=== PATIENT | male | born 1975 | race Caucasian/White ===

== ENCOUNTER 2021-10-04 15:01 | Day surgery (SDC) | payer OTHER, SELFPAY ==
[2021-10-04] VITALS (13 sets, daily range): BP systolic 126–168; BP diastolic 82–108; PULSE 71–87; RESP 14–24; TEMP 36.5–36.9; O2SAT 97–99; BMI 31.7
[2021-10-04] MEDS: NITROGLYCERIN 0.4 MG TAB.SUBL SUBLINGUAL (16:15)
[2021-10-04 16:17] LABS: Basophils Percent Auto 0.5 % (0.0-3.0); Eosinophils Percent Auto 3.4 % (0.0-7.0); Hematocrit 41.4 % (37.0-53.0); Hemoglobin* 14.6 gm/dL (13.5-17.5); Lymphocytes Percent Auto 20.2 % (20-44); Mean Corpuscular HGB Conc 35 gm/dL (32-36); Mean Corpuscular Hemoglobin 31 pg (26-34); Mean Corpuscular Volume 88 fL (80-100); Monocytes Percent Auto 7.8 % (0.0-11.0); Neutrophils Percent Auto 68.1 % (42.0-72.0); Platelet Count* 146 K/uL (140-440); RDW Coefficient of Variation % 11.5 % (11.5-15.5); Red Blood Count 4.71 m/uL (4.30-5.90); White Blood Count* 4.36 K/uL (4.50-11.00)
[2021-10-04 16:22] LABS: Slide Review Reflex No
[2021-10-04 16:32] LABS: INR 1.12 (0.91-1.10); Prothrombin Time 14.8 Seconds
--- NOTE | 2021-10-04 16:32 | ED.NURSE ---
did get a headache from the nitro. stated that the pain went lower in his chest after that was given.
[2021-10-04 16:38] LABS: Albumin* 4.4 g/dL (3.3-5.0)
[2021-10-04 16:39] LABS: Chloride* 105 mmol/L (96-114); Potassium* 3.7 mmol/L (3.6-5.1); Sodium* 138 mmol/L (135-149)
[2021-10-04 16:41] LABS: Aspartate Amino Transferase* 328 U/L (12-35); Bilirubin Total* 3.9 mg/dL (0.1-1.5); Carbon Dioxide* 25 mmol/L (20-32); Creatinine* 0.8 mg/dL (0.5-1.5); Est. Creatinine Clearance* 116.61; Estimated Glomerular Filt Rate 111 ml/min
[2021-10-04 16:42] LABS: Alanine Aminotransferase* 347 U/L (4-50); Alkaline Phosphatase* 137 U/L (40-150); Blood Urea Nitrogen* 7 mg/dL (5-24); Gamma Glutamyl Transpeptidase* 407 U/L (8-55); Glucose* 113 mg/dL (60-115); Lipase* 104 U/L (23-300); Total Protein* 7.3 g/dL (6.0-8.3)
[2021-10-04 16:53] LABS: Troponin I* < 0.01 ng/mL (0.01-0.04)
[2021-10-04] MEDS: GI COCKTAIL (VISC LIDO/ANTACID) 30 ML PO (16:57)
--- NOTE | 2021-10-04 17:11 | CRLHL7_ITS ---
For Patients: As a result of the Century Cures Act, medical imaging exams and procedure reports are released immediately into your electronic medical record. You may view this report before your referring provider. If you have questions, please contact your health care provider. This noncontrast CT chest is interpreted as part of the accompanying CT angiogram of the chest, abdomen, pelvis. Please note that all CT scans at this facility use dose modulation, iterative reconstruction, and/or weight-based dosing when appropriate to reduce radiation dose to as low as reasonably achievable. Dictated by Cesar Noble MD @ 10/04/2021 6:17:02 PM (Electronically Signed)
--- NOTE | 2021-10-04 17:19 | ED_ITS ---
HPI - General Adult General Chief complaint: Abdominal Pain Stated complaint: ABDOMINAL PAIN IN UPPER CENTER REGION Time Seen by Provider: 10/04/21 15:35 History of Present Illness HPI narrative: 45yo male patient with known history of liver disease secondary to history of ETOH use (sober greater than 3 years) presents to the ED with acute complaints of chest/abdominal pain. The patient reports that the pain began while eating today, and reports similar pain with meal yesterday. The patient denies nausea, vomiting, or diarrhea. Although, while in the ED the pain becomes so severe that he reports nausea associated with his pain. The patient reports a history of gallbladder disease, with stones noted. Patient reports family history of cardiac disease in his father at less than 50 years of age. He denies current EtOH, tobacco, or illicit substance use. Related Data Home Medications Medication Instructions Recorded Confirmed bupropion HCl 150 mg tablet,12 hr 150 mg PO Q12H 10/04/21 10/04/21 sustained-release gabapentin 300 mg capsule 300 mg PO BID 10/04/21 10/04/21 hydroxyzine HCl 25 mg tablet 25 mg PO TID PRN 10/04/21 10/04/21 Allergies Allergy/AdvReac Type Severity Reaction Status Date / Time Sulfa (Sulfonamide Allergy Severe Hives Verified 10/04/21 15:12 Antibiotics) hydrochlorothiazide AdvReac Unknown Verified 10/04/21 15:12 Review of Systems Const: Denies: fever, chills, fatigue or night sweats Cardio: Reports: chest pain and shortness of breath when lying down; Denies: palpitations, swelling of feet/ankles or shortness of breath with exertion Resp: Denies: shortness of breath GI: Reports: abdominal pain, nausea and constipation (last BM 2 days prior); Denies: vomiting, heartburn or diarrhea Neuro: Denies: headache, lack of coordination or dizziness Psych: Reports: anxiety Endo: Denies: fatigue PFSH PFSH Social History Smoking Status: Never smoker Do you use any of these nicotine containing products: None Second hand tobacco smoke exposure: No How often do you have a drink containing alcohol: never How often do you have six or more drinks on one occasion: Never AUDIT-C Alcohol total score: 0 Non-prescribed substance use: denies use service: No Exam Const: Vital Signs, click to edit/add: Vital Signs - 24 hr 10/04/21 15:07 10/04/21 16:15 10/04/21 16:16 Temperature 98.4 F Pulse Rate [Pulse Oximeter] 75 71 71 Respiratory Rate 18 24 24 Blood Pressure [Ri ght Upper Arm] 168/108 H 148/98 H Pulse Oximetry 99 98 98 10/04/21 16:20 10/04/21 16:30 10/04/21 16:40 Temperature Pulse Rate [Pulse Oximeter] 82 77 74 Respiratory Rate 21 22 Blood Pressure [Ri ght Upper Arm] 150/98 H 141/94 H 139/96 H Pulse Oximetry 97 97 98 10/04/21 16:50 10/04/21 18:00 10/04/21 18:30 Temperature Pulse Rate [Pulse Oximeter] 76 87 72 Respiratory Rate 14 24 Blood Pressure [Ri ght Upper Arm] 146/97 H 145/96 H 147/98 H Pulse Oximetry 97 97 99 10/04/21 19:00 Temperature Pulse Rate [Pulse Oximeter] 75 Respiratory Rate Blood Pressure [Ri ght Upper Arm] 126/82 Pulse Oximetry 99 Documenting provider has reviewed patient's vital signs: yes Common normals: oriented x3, healthy appearing and alert General appearance: cooperative, well kempt and well developed; not comfortable Orientation/consciousness: Yes awake, Yes oriented to person, Yes oriented to place and Yes oriented to time Chest: Common normals: inspection of chest normal and palpation of chest normal Resp: Common normals: normal respiratory effort, no retractions, no use of accessory muscles and clear to auscultation bilaterally Effort & inspection: able to speak in complete sentences Auscultation: clear to auscultation bilaterally Cardio: Common normals: regular rate, regular rhythm, S1 normal heart sound, S2 normal heart sound, no gallops and no murmurs Rate: regular rate Rhythm: regular rhythm Heart sounds: S1 normal and S2 normal GI: Common normals: Normal to inspection, nondistended, normoactive bowel sounds present, soft to palpation and non-tender Palpation: soft; no guarding Extremity: Common normals: normal to inspection, full ROM and no clubbing, cyanosis or edema Neuro: Common normals: oriented x3 Sensorium/orientation: awake, alert, oriented to person, oriented to place and oriented to time Psych: Common normals: mental status grossly normal, thought process normal, cooperative, affect normal and activity/motor behavior normal Appearance: well kempt Thought process: normal thought process Skin: Common normals: no rashes or lesions noted General skin exam: no rashes or lesions noted Course Course Hospital Course: Frank presented to the emergency department with complaints of chest/abdominal pain that began after eating. The patient reports similar symptoms 1 day prior to presentation. In the emergency department, patient reports that he has had waxing waning of discomfort. He has had CT evaluation of chest abdomen pelvis to rule out aortic emergency. He has had normal EKG. His laboratory studies have revealed transaminitis and his ultrasound revealed gallstones with potential wall thickening. Dr. Francis, general surgery, was consulted for consideration of cholecystectomy. She recommends antibiotics, re-evaluation with additional laboratory studies in the a.m., and potential surgical intervention pending further evaluation. She has requested the hospitalist consult for medical management. Plan for patient to be admitted for further evaluation and treatment of his acute concern and complaints. Reevaluation(s) Reevaluation #1: Patient reports pain now severe and causing nausea. Patient reports some improvement with position change. He reports associated shortness of breath and 'movement' of pain into low chest/epigastrum. Time: 17:05 Reevaluation #2: Dr Francis consulted for acute findings consistent with potential gallstone biliary obstruction in patient with complicated history of liver disease. Consider antibiotics, admission, and recheck of labs in AM with potential consideration of surgery, if indicated. Dr Pena consulted, but currently occupied. Time: 19:44 Vital Signs Vital signs: Initial Vital Signs Temperature 98.4 F 10/04/21 15:07 Temperature Source Temporal Artery Scan 10/04/21 15:07 Pulse Rate 75 10/04/21 15:07 Respiratory Rate 18 10/04/21 15:07 Blood Pressure 168/108 H 10/04/21 15:07 Blood Pressure Mean 128 10/04/21 15:07 Blood Pressure Position Supine 10/04/21 15:07 Pulse Oximetry 99 10/04/21 15:07 Oxygen Delivery Method 10/04/21 15:07 Vital Signs Temperature 98.4 F 10/04/21 15:07 Pulse Rate 75 10/04/21 15:07 Respiratory Rate 18 10/04/21 15:07 Blood Pressure 168/108 H 10/04/21 15:07 Pulse Oximetry 99 10/04/21 15:07 Temperature 98.4 F 10/04/21 15:07 Pulse Rate 75 10/04/21 19:00 Respiratory Rate 24 10/04/21 18:30 Blood Pressure 126/82 10/04/21 19:00 Pulse Oximetry 99 10/04/21 19:00 Medical Decision Making Lab Data Labs: Lab Results 10/04/21 10/04/21 10/04/21 Range/Units 16:10 16:10 16:10 WBC 4.36 L (4.50-11.00) K/uL RBC 4.71 (4.30-5.90) m/uL Hgb 14.6 (13.5-17.5) gm/dL Hct 41.4 (37.0-53.0) % MCV 88 (80-100) fL MCH 31 (26-34) pg MCHC 35 (32-36) gm/dL RDW Coeff of Byron 11.5 (11.5-15.5) % Plt Count 146 (140-440) K/uL Neut % (Auto) 68.1 (42.0-72.0) % Lymph % (Auto) 20.2 (20-44) % [place] % (Auto) 7.8 (0.0-11.0) % Eos % (Auto) 3.4 (0.0-7.0) % Baso % (Auto) 0.5 (0.0-3.0) % Neut # (Auto) 3.00 (1.7-7.0) K/uL Lymph # (Auto) 0.90 (0.90-2.90) K/uL [place] # (Auto) 0.30 (0.00-0.90) K/UL Eos # (Auto) 0.10 (0.00-0.50) K/uL Baso # (Auto) 0.00 (0.00-0.30) K/uL Abs Immat Gran (auto) 0.00 (0.00-0.30) K/uL INR 1.12 H (0.91-1.10) Sodium 138 (135-149) mmol/L Potassium 3.7 (3.6-5.1) mmol/L Chloride 105 (96-114) mmol/L Carbon Dioxide 25 (20-32) mmol/L BUN 7 (5-24) mg/dL Creatinine 0.8 (0.5-1.5) mg/dL Estimated Creat Clear 116.61 Estimated GFR 111 ml/min Glucose 113 (60-115) mg/dL Calcium 9.0 (8.4-10.6) mg/dL Total Bilirubin 3.9 H (0.1-1.5) mg/dL GGT (8-55) U/L AST 328 H (12-35) U/L ALT 347 H (4-50) U/L Alkaline Phosphatase 137 (40-150) U/L Troponin I < 0.01 L (0.01-0.04) ng/mL Total Protein 7.3 (6.0-8.3) g/dL Albumin 4.4 (3.3-5.0) g/dL Lipase 104 (23-300) U/L 10/04/21 Range/Units 16:10 WBC (4.50-11.00) K/uL RBC (4.30-5.90) m/uL Hgb (13.5-17.5) gm/dL Hct (37.0-53.0) % MCV (80-100) fL MCH (26-34) pg MCHC (32-36) gm/dL RDW Coeff of Byron (11.5-15.5) % Plt Count (140-440) K/uL Neut % (Auto) (42.0-72.0) % Lymph % (Auto) (20-44) % [place] % (Auto) (0.0-11.0) % Eos % (Auto) (0.0-7.0) % Baso % (Auto) (0.0-3.0) % Neut # (Auto) (1.7-7.0) K/uL Lymph # (Auto) (0.90-2.90) K/uL [place] # (Auto) (0.00-0.90) K/UL Eos # (Auto) (0.00-0.50) K/uL Baso # (Auto) (0.00-0.30) K/uL Abs Immat Gran (auto) (0.00-0.30) K/uL INR (0.91-1.10) Sodium (135-149) mmol/L Potassium (3.6-5.1) mmol/L Chloride (96-114) mmol/L Carbon Dioxide (20-32) mmol/L BUN (5-24) mg/dL Creatinine (0.5-1.5) mg/dL Estimated Creat Clear Estimated GFR ml/min Glucose (60-115) mg/dL Calcium (8.4-10.6) mg/dL Total Bilirubin (0.1-1.5) mg/dL GGT 407 H (8-55) U/L AST (12-35) U/L ALT (4-50) U/L Alkaline Phosphatase (40-150) U/L Troponin I (0.01-0.04) ng/mL Total Protein (6.0-8.3) g/dL Albumin (3.3-5.0) g/dL Lipase (23-300) U/L Imaging Data GB US: Attestation: I have reviewed the pertinent imaging results. Radiologist's impression: FINDINGS: Gallbladder: Solitary 3.3 centimeter gallstone. Gallbladder wall thickening up to 5 millimeters. No pericholecystic fluid.? Common bile duct: 7 mm.? IMPRESSION: Solitary 3.3 centimeter gallstone gallbladder wall thickening up to 5 millimeters. Common bile duct is the upper limits of normal at 7 millimeters. Discharge Plan Discharge Clinical Impression: Transaminitis, Acute cholecystitis due to biliary calculus Patient Disposition: Admitted As Inpatient Condition: Improved Activity Level: Activity as Tolerated Discharge Diet: Other Diet Detail: NPO after midnight. Prescriptions: No Action gabapentin 300 mg capsule 300 mg PO BID 0RF Label Comments: Take 2 capsules by mouth at dinner and 3 at bedtime bupropion HCl 150 mg tablet sustained-release 12 hr 150 mg PO Q12H 0RF Label Comments: Take 1 tablet by mouth daily for 3 days, then twice daily thereafter hydroxyzine HCl 25 mg tablet 25 mg PO TID [id number] Label Comments: Take 1 tablet (25 mg) by mouth 3 times daily as needed for anxiety Follow Up/Referrals: Provider,Not a Local [Primary Care Provider] -
--- NOTE | 2021-10-04 17:20 | ED.NURSE ---
went to imaging. does feel better now and will hold off the droperidol for now. pain is much less. was up to br to void. thinks the gi cocktail may have helped now. was quite anxious with the pain. dr harvey was in to see when the pain was more severe.
--- NOTE | 2021-10-04 17:36 | ED.NURSE ---
dr harvey aware that the pain subsided significantly and droperidol was not given.
--- NOTE | 2021-10-04 17:42 | CRLHL7_ITS ---
For Patients: As a result of the Century Cures Act, medical imaging exams and procedure reports are released immediately into your electronic medical record. You may view this report before your referring provider. If you have questions, please contact your health care provider. INDICATION: Transaminitis with abdominal pain TECHNIQUE: Ultrasound abdomen limited. Sonographic images of the right upper quadrant were obtained using yost-scale and color Doppler images. COMPARISON: None FINDINGS: Gallbladder: Solitary 3.3 centimeter gallstone. Gallbladder wall thickening up to 5 millimeters. No pericholecystic fluid. Common bile duct: 7 mm. IMPRESSION: Solitary 3.3 centimeter gallstone gallbladder wall thickening up to 5 millimeters. Common bile duct is the upper limits of normal at 7 millimeters. Dictated by Alexander Holden MD @ 10/04/2021 6:51:03 PM Dictated by: Alexander Holden MD @ 10/04/2021 18:51:10 (Electronically Signed)
[2021-10-04] MEDS: PIPERACILLIN/TAZOBACTAM 3.375 GM in 0.9 % SODIUM CHLORIDE Mini-bag 100 ML IVPB (20:01)
[2021-10-04 20:34] LABS: SARS PCR* Negative SARS-CoV-2 (Negative)
--- NOTE | 2021-10-04 21:43 | W.PC.EDHO ---
Primary Language: Preferred Language: Orientation Status: [x] Alert & Oriented [] Slight Confusion [] Known Dx Dementia Transfers By: [x] Assist of 1 [] Assist of 2 [] Lift Active Medications Discontinued Medications Generic Name Dose Route Start Last Admin Trade Name Trinidad PRN Reason Stop Dose Admin Piperacillin Sod/Tazobactam 100 mls @ 200 mls/hr 10/04/21 19:35 10/04/21 20:01 Sod 3.375 gm/ Sodium Chloride IVPB 10/04/21 19:36 200 mls/hr ONCE ONE Administration Lidocaine/Aluminum/Magnesium/Simeth 30 ml 10/04/21 16:49 10/04/21 16:57 Gi Cocktail (Visc Lido/Antacid) 30 Ml PO 10/04/21 16:50 30 ml ONCE ONE Administration Nitroglycerin 0.4 mg 10/04/21 15:53 10/04/21 16:15 Nitroglycerin 0.4 Mg Tab.Subl SUBLINGUAL 10/04/21 15:54 0.4 mg ONCE ONE Administration Description of Symptoms ED Triage Present Problem Patient with epigastric pain after lunch yesterday Description . Went away while he was sleeping. Came back after lunch again today. Slight nausea. Patient reports history of gallstones on ultrasounds x2. ED Triage Date of Onset of 10/03/21 Symptoms Pain Pain Description [Upper Medial Sharp Abdomen] Pain Description [Upper Medial Sharp Abdomen] Pain Intensity [Upper Medial 7 Abdomen] Pain Intensity [Upper Medial 7 Abdomen] Pain Intensity 1 Pain Intensity 1 Pain Intensity 1 Pain Intensity 2 Pain Scale Used [Upper Medial Numeric (1 - 10) Abdomen] Pain Scale Used [Upper Medial Numeric (1 - 10) Abdomen] Pain Scale Used Numeric (1 - 10) Pain Scale Used Numeric (1 - 10) Pain Scale Used Numeric (1 - 10) Pain Scale Used Numeric (1 - 10) IV Insertion/Site Date of IV Line Insertion [ 10/04/21 Left Antecubital] Oxygen Administration Pulse Oximetry 99 Pulse Oximetry 99 Pulse Oximetry 97 Pulse Oximetry 97 Pulse Oximetry 98 Pulse Oximetry 97 Pulse Oximetry 97 Pulse Oximetry 97 Pulse Oximetry 97 Pulse Oximetry 98 Pulse Oximetry 98 Pulse Oximetry 99 Oxygen Delivery Method Room Air Oxygen Delivery Method Room Air Oxygen Delivery Method Room Air Oxygen Delivery Method Room Air Oxygen Delivery Method Room Air Oxygen Delivery Method Room Air Oxygen Delivery Method Room Air Oxygen Delivery Method Room Air Oxygen Delivery Method Room Air Oxygen Delivery Method Room Air Oxygen Delivery Method Room Air Oxygen Delivery Method Room Air Cardiac Monitoring EKG Method 12 Lead
--- NOTE | 2021-10-04 21:50 | P.IMHP_ITS ---
Hospitalist- H&P: HPI History of Present Illness Date Seen: 10/04/21 Chief complaint: ABDOMINAL PAIN IN UPPER CENTER REGION Narrative: Frank Higgins is a 45 year old male admitted through the emergency department with a 1 day history of severe epigastric pain. He had onset of the pain yesterday. He was very severe. He was unable to continue his work because of the pain. He is unable to eat because of the pain. Last night he was able to sleep a little and this morning his pain was better. Today he ate lunch and this afternoon the pain got much worse. As result of this he came to the emergency room. he wear of having a fever. Does not have shortness of breath. He has had nausea without vomiting. Bowel function has been normal. No previous symptoms like this. He does note however that in on is of mild heartburn. He is known to have gallstones dating back years. Patient has a history of severe alcoholic induced liver disease recurrent hospitalizations up until May of 2018 with ascites, jaundice, hepatitis, macrocytic anemia, hyponatremia. he also had hypertension and diabetes type 2. Since May of 2018 he has stopped drinking alcohol and the problems have resolved. 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 Review of Systems Narrative: Patient reports he has been doing well therefore problems as listed above. He has been vaccinated for COVID. He has had COVID infection twice. [facility] Medical History (Updated 10/04/21 @ 21:49 by Charles Pena MD) Cirrhosis, alcoholic Diabetes type 2, controlled Hypertension Social History (Updated 10/04/21 @ 22:00 by Charles Pena MD) Narrative: he lives alone in [place]. 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 He does not smoke. He does not drink alcohol since May 2018. Does not use recreational drugs. Healthcare power of deputy commonwealth's attorney is his mother. code status is full Smoking Status: Never smoker Do you use any of these nicotine containing products: None Second hand tobacco smoke exposure: No How often do you have a drink containing alcohol: never How often do you have six or more drinks on one occasion: Never AUDIT-C Alcohol total score: 0 Non-prescribed substance use: denies use service: No Meds Home Medications and Allergies Home Medications Medication Instructions Recorded Confirmed Type bupropion HCl 150 mg tablet,12 hr 150 mg PO Q12H 10/04/21 10/04/21 History sustained-release gabapentin 300 mg capsule 300 mg PO BID 10/04/21 10/04/21 History hydroxyzine HCl 25 mg tablet 25 mg PO TID PRN 10/04/21 10/04/21 History Allergies Allergy/AdvReac Type Severity Reaction Status Date / Time Sulfa (Sulfonamide Allergy Severe Hives Verified 10/04/21 15:12 Antibiotics) hydrochlorothiazide AdvReac Unknown Verified 10/04/21 15:12 Exam Narrative: Exam Narrative: he is alert and appears in no distress. He is not having any pain at this time. Eyes are normal. Sclerae nonicteric. Oropharynx is normal. Supple without mass or adenopathy. Respirations are clear to auscultation. Cardio vascular: S1, S2, regular rate and rhythm palpation over his chest is nontender. Abdomen: Bowel sounds are active. Abdomen is soft without significant tenderness. No mass. Extremities with no edema. Good peripheral pulses. Const: Vital Signs, click to edit/add: Vital Signs - 24 hr 10/04/21 15:07 10/04/21 16:15 10/04/21 16:16 Temperature 98.4 F Pulse Rate [Pulse Oximeter] 75 71 71 Respiratory Rate 18 24 24 Blood Pressure [Ri ght Upper Arm] 168/108 H 148/98 H Pulse Oximetry 99 98 98 10/04/21 16:20 10/04/21 16:30 10/04/21 16:40 Temperature Pulse Rate [Pulse Oximeter] 82 77 74 Respiratory Rate 21 22 Blood Pressure [Ri ght Upper Arm] 150/98 H 141/94 H 139/96 H Pulse Oximetry 97 97 98 10/04/21 16:50 10/04/21 18:00 10/04/21 18:30 Temperature Pulse Rate [Pulse Oximeter] 76 87 72 Respiratory Rate 14 24 Blood Pressure [Ri ght Upper Arm] 146/97 H 145/96 H 147/98 H Pulse Oximetry 97 97 99 10/04/21 19:00 Temperature Pulse Rate [Pulse Oximeter] 75 Respiratory Rate Blood Pressure [Ri ght Upper Arm] 126/82 Pulse Oximetry 99 Documenting provider has reviewed patient's vital signs: yes Hospitalist - H&P: Result Labs Labs: Short CBC 10/04/21 Range/Units 16:10 WBC 4.36 L (4.50-11.00) K/uL Hgb 14.6 (13.5-17.5) gm/dL Hct 41.4 (37.0-53.0) % Plt Count 146 (140-440) K/uL BMP 10/04/21 16:10 Sodium 138 Potassium 3.7 Chloride 105 Carbon Dioxide 25 BUN 7 Creatinine 0.8 Glucose 113 Calcium 9.0 Cardiac Enzymes 10/04/21 Range/Units 16:10 Troponin I < 0.01 L (0.01-0.04) ng/mL Liver Function 10/04/21 10/04/21 10/04/21 Range/Units 16:10 16:10 19:30 Total Bilirubin 3.9 H (0.1-1.5) mg/dL Direct Bilirubin 3.0 H (0.0-0.5) mg/dL GGT 407 H (8-55) U/L AST 328 H (12-35) U/L ALT 347 H (4-50) U/L Alkaline Phosphatase 137 (40-150) U/L Albumin 4.4 (3.3-5.0) g/dL ECG Attestation: I personally reviewed and interpreted this ECG as follows: ( normal) Imaging CT scan - abdomen: Radiologist's impression: multiple gallstones. No definite cholecystitis US - abdomen: Radiologist's impression: Multiple gallstones. gallbladder wall thickening. common bile duct 7 mm Assessment and Plan Assessment and plan (1) Acute cholecystitis due to biliary calculus: Status: Acute Plan Patient appears to have acute cholecystitis with biliary colic. Admit to the hospital with IV antibiotic S and surgical consultation. History of severe alcoholic liver disease appears to have resolved.
[2021-10-04] MEDS: LACTATED RINGERS 1000 ML 1,000 ML 125 ML IV (22:46)
[2021-10-04] MEDS: buPROPion HCL SR 150 MG TAB PO (22:47)
[2021-10-04] MEDS: hydrOXYzine pamoate 25 MG CAPSULE PO (22:47)
[2021-10-05] VITALS (24 sets, daily range): BP systolic 114–168; BP diastolic 84–113; PULSE 69–103; RESP 16–28; TEMP 36.2–37.7; O2SAT 96–100
[2021-10-05] MEDS: PIPERACILLIN/TAZOBACTAM 3.375 GM in 0.9 % SODIUM CHLORIDE Mini-bag 100 ML IVPB ×3 (01:48→22:29)
[2021-10-05] MEDS: 0.9 % SODIUM CHLORIDE 250 ml IV (01:48)
--- NOTE | 2021-10-05 06:22 | PC.NURSE ---
pt to floor at 2210. Indep in room. NPO for surgical consult. No c/o pain since admission to floor. No nausea. BP came down to 114/84 after being elevated in ED. other VS stable and WNL. LR running at 125 in left AC.
[2021-10-05 07:26] LABS: Basophils Percent Auto 0.3 % (0.0-3.0); Eosinophils Percent Auto 5.3 % (0.0-7.0); Hemoglobin* 14.4 gm/dL (13.5-17.5); Immature Granulocytes Abs Auto 0.01 K/uL (0.00-0.30); Lymphocytes Percent Auto 22.9 % (20-44); Mean Corpuscular HGB Conc 34 gm/dL (32-36); Mean Corpuscular Hemoglobin 30 pg (26-34); Mean Corpuscular Volume 88 fL (80-100); Monocytes Percent Auto 9.6 % (0.0-11.0); Neutrophils Percent Auto 61.6 % (42.0-72.0); Platelet Count* 158 K/uL (140-440); RDW Coefficient of Variation % 11.7 % (11.5-15.5); Red Blood Count 4.75 m/uL (4.30-5.90); White Blood Count* 3.75 K/uL (4.50-11.00)
[2021-10-05] MEDS: LACTATED RINGERS 1000 ML 1,000 ML 125 ML IV ×3 (07:38→23:10)
[2021-10-05 07:47] LABS: Albumin* 4.2 g/dL (3.3-5.0)
[2021-10-05 07:48] LABS: Chloride* 107 mmol/L (96-114)
[2021-10-05 07:50] LABS: Bilirubin Direct* 3.5 mg/dL (0.0-0.5); Bilirubin Total* 5.9 mg/dL (0.1-1.5); Carbon Dioxide* 26 mmol/L (20-32); Creatinine* 0.8 mg/dL (0.5-1.5); Est. Creatinine Clearance* 116.61; Estimated Glomerular Filt Rate 111 ml/min; Potassium* 3.9 mmol/L (3.6-5.1); Sodium* 139 mmol/L (135-149); Total Protein* 7.2 g/dL (6.0-8.3)
[2021-10-05 07:51] LABS: Alanine Aminotransferase* 381 U/L (4-50); Alkaline Phosphatase* 159 U/L (40-150); Aspartate Amino Transferase* 257 U/L (12-35); Blood Urea Nitrogen* 5 mg/dL (5-24); Calcium* 8.7 mg/dL (8.4-10.6); Glucose* 101 mg/dL (60-115); Lipase* 86 U/L (23-300)
[2021-10-05 07:56] LABS: Slide Review Reflex No
[2021-10-05 08:28] LABS: Gamma Glutamyl Transpeptidase* 421 U/L (8-55)
--- NOTE | 2021-10-05 09:19 | PM.GSCN ---
History of Present Illness Consult details Consult date: 10/05/21 Narrative: The patient is a 45-year-old male who presents to the emergency department with 2 days of epigastric pain. He states that he woke up with mid chest excruciating pain 2 days ago. He states that the pain became so severe that he could not work. He states that he laid in bed for 2-3 hours which helped but then yesterday he ate some lunch which made it worse again. That made him come in to see care. Yesterday in emergency department it was severe. When it 1st came on it was radiating to his shoulder. In the emergency department they gave him nitroglycerin as well as a GI cocktail which made the pain of at lower in his chest but still pain persisted. Now the pain is nearly gone. He states that he had nausea but no vomiting. He has never had pain like this before. He has a history of alcoholic cirrhosis. Up until May of 2018 his disease was somewhat severe in which she was hospitalized with jaundice anemia hepatitis and hyponatremia. He has since of stain from alcohol and his liver function has returned. His labs back in May were normal including INR. He did have ultrasounds which showed gallstones and cirrhosis of the liver. Review of Systems Status of ROS: Reports: 10 or more systems reviewed and unremarkable except as noted in History and below [facility] Medical History (Updated 10/05/21 @ 11:17 by Anastasiia Francis MD) Cirrhosis of liver Cirrhosis, alcoholic Diabetes type 2, controlled Hypertension Surgical History (Updated 10/05/21 @ 11:16 by Anastasiia Francis MD) H/O umbilical hernia repair History of kidney surgery Social History (Updated 10/04/21 @ 22:00 by Charles Pena MD) Narrative: he lives alone in [place]. 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 He does not smoke. He does not drink alcohol since May 2018. Does not use recreational drugs. Healthcare power of heater installer is his mother. code status is full Highest level of school completed/degree received: Bachelor's degree Smoking Status: Never smoker Do you use any of these nicotine containing products: None Second hand tobacco smoke exposure: No How often do you have a drink containing alcohol: never How often do you have six or more drinks on one occasion: Never AUDIT-C Alcohol total score: 0 Non-prescribed substance use: denies use Caffeine: Yes (2xCovu, mtn dew) Gender Identity: male service: No Meds Home Medications and Allergies Home Medications Medication Instructions Recorded Confirmed Type bupropion HCl 150 mg tablet,12 hr 150 mg PO BID 10/04/21 10/05/21 History sustained-release gabapentin 300 mg capsule 600 - 900 mg PO BID 10/04/21 10/05/21 History hydroxyzine HCl 25 mg tablet 25 mg PO TID PRN 10/04/21 10/04/21 History Allergies Allergy/AdvReac Type Severity Reaction Status Date / Time Sulfa (Sulfonamide Allergy Severe Hives Verified 10/04/21 15:12 Antibiotics) hydrochlorothiazide AdvReac Unknown Verified 10/04/21 15:12 Exam Narrative: Exam Narrative: General appearance: Alert, cooperative, and in no distress Eyes: PERRLA, eye lids clear, and sclera white HENT Head: Normocephalic Ears: External ears normal Pulmonary: Breathing nonlabored on room air Cardiovascular Heart: Regular rate and rhythm Extremities: warm and well perfused Gastrointestinal Abdominal: Soft, minimally tender in the epigastric region. Nondistended. Scars consistent with surgical history. Musculoskeletal: Extremities: Upper: Both upper extremities have normal joint range of motion and intact strength. Lower: Both lower extremities have normal joint range of motion and intact strength. Skin: Normal skin color, texture, and turgor. No rashes or lesions. Neurologic: No focal deficits Psychiatric: Alert, oriented, cooperative, normal affect. Const: Vital Signs, click to edit/add: Vital Signs - 24 hr 10/04/21 15:07 10/04/21 16:15 10/04/21 16:16 Temperature 98.4 F Pulse Rate [Left P ulse Oximeter] Pulse Rate [Pulse Oximeter] 75 71 71 Respiratory Rate 18 24 24 Blood Pressure [Le ft Arm] Blood Pressure [Ri ght Upper Arm] 168/108 H 148/98 H Pulse Oximetry 99 98 98 10/04/21 16:20 10/04/21 16:30 10/04/21 16:40 Temperature Pulse Rate [Left P ulse Oximeter] Pulse Rate [Pulse Oximeter] 82 77 74 Respiratory Rate 21 22 Blood Pressure [Le ft Arm] Blood Pressure [Ri ght Upper Arm] 150/98 H 141/94 H 139/96 H Pulse Oximetry 97 97 98 10/04/21 16:50 10/04/21 18:00 10/04/21 18:30 Temperature Pulse Rate [Left P ulse Oximeter] Pulse Rate [Pulse Oximeter] 76 87 72 Respiratory Rate 14 24 Blood Pressure [Le ft Arm] Blood Pressure [Ri ght Upper Arm] 146/97 H 145/96 H 147/98 H Pulse Oximetry 97 97 99 10/04/21 19:00 10/04/21 21:30 10/04/21 22:13 Temperature Pulse Rate [Left P ulse Oximeter] Pulse Rate [Pulse Oximeter] 75 86 Respiratory Rate 16 18 Blood Pressure [Le ft Arm] Blood Pressure [Ri ght Upper Arm] 126/82 148/105 H Pulse Oximetry 99 98 97 10/04/21 22:32 10/05/21 02:41 10/05/21 07:00 Temperature 97.7 F 97.8 F 99.1 F Pulse Rate [Left P ulse Oximeter] 73 69 85 Pulse Rate [Pulse Oximeter] Respiratory Rate 18 18 28 H Blood Pressure [Le ft Arm] 142/102 H 114/84 128/93 H Blood Pressure [Ri ght Upper Arm] Pulse Oximetry 97 97 98 Results Labs Labs: Abnormal lab results 10/04/21 10/04/21 10/04/21 Range/Units 16:10 16:10 16:10 WBC 4.36 L (4.50-11.00) K/uL INR 1.12 H (0.91-1.10) Total Bilirubin 3.9 H (0.1-1.5) mg/dL Direct Bilirubin (0.0-0.5) mg/dL GGT (8-55) U/L AST 328 H (12-35) U/L ALT 347 H (4-50) U/L Alkaline Phosphatase (40-150) U/L Troponin I < 0.01 L (0.01-0.04) ng/mL 10/04/21 10/04/21 10/05/21 Range/Units 16:10 19:30 06:14 WBC 3.75 L (4.50-11.00) K/uL INR (0.91-1.10) Total Bilirubin (0.1-1.5) mg/dL Direct Bilirubin 3.0 H (0.0-0.5) mg/dL GGT 407 H (8-55) U/L AST (12-35) U/L ALT (4-50) U/L Alkaline Phosphatase (40-150) U/L Troponin I (0.01-0.04) ng/mL 10/05/21 Range/Units 06:14 WBC (4.50-11.00) K/uL INR (0.91-1.10) Total Bilirubin 5.9 H (0.1-1.5) mg/dL Direct Bilirubin 3.5 H (0.0-0.5) mg/dL GGT 421 H (8-55) U/L AST 257 H (12-35) U/L ALT 381 H (4-50) U/L Alkaline Phosphatase 159 H (40-150) U/L Troponin I (0.01-0.04) ng/mL Diabetes panel 10/04/21 10/05/21 Range/Units 16:10 06:14 Sodium 138 139 (135-149) mmol/L Potassium 3.7 3.9 (3.6-5.1) mmol/L Chloride 105 107 (96-114) mmol/L Carbon Dioxide 25 26 (20-32) mmol/L BUN 7 5 (5-24) mg/dL Creatinine 0.8 0.8 (0.5-1.5) mg/dL Glucose 113 101 (60-115) mg/dL Calcium 9.0 8.7 (8.4-10.6) mg/dL AST 328 H 257 H (12-35) U/L ALT 347 H 381 H (4-50) U/L Alkaline Phosphatase 137 159 H (40-150) U/L Total Protein 7.3 7.2 (6.0-8.3) g/dL Albumin 4.4 4.2 (3.3-5.0) g/dL Calcium panel 10/04/21 10/05/21 Range/Units 16:10 06:14 Calcium 9.0 8.7 (8.4-10.6) mg/dL Albumin 4.4 4.2 (3.3-5.0) g/dL Pituitary panel 10/04/21 10/05/21 Range/Units 16:10 06:14 Sodium 138 139 (135-149) mmol/L Potassium 3.7 3.9 (3.6-5.1) mmol/L Chloride 105 107 (96-114) mmol/L Carbon Dioxide 25 26 (20-32) mmol/L BUN 7 5 (5-24) mg/dL Creatinine 0.8 0.8 (0.5-1.5) mg/dL Glucose 113 101 (60-115) mg/dL Calcium 9.0 8.7 (8.4-10.6) mg/dL Adrenal panel 10/04/21 10/05/21 Range/Units 16:10 06:14 Sodium 138 139 (135-149) mmol/L Potassium 3.7 3.9 (3.6-5.1) mmol/L Chloride 105 107 (96-114) mmol/L Carbon Dioxide 25 26 (20-32) mmol/L BUN 7 5 (5-24) mg/dL Creatinine 0.8 0.8 (0.5-1.5) mg/dL Glucose 113 101 (60-115) mg/dL Calcium 9.0 8.7 (8.4-10.6) mg/dL Total Bilirubin 3.9 H 5.9 H (0.1-1.5) mg/dL AST 328 H 257 H (12-35) U/L ALT 347 H 381 H (4-50) U/L Alkaline Phosphatase 137 159 H (40-150) U/L Total Protein 7.3 7.2 (6.0-8.3) g/dL Albumin 4.4 4.2 (3.3-5.0) g/dL All other labs normal. Imaging Abdomen CT scan report/results: report reviewed and image reviewed (CT chest abdomen pelvis with contrast aortic dissection protocol: Impression: No vascular abnormality seen that would explain patient's chest or abdominal pain. Normal CT angiography of the thoracic and abdominal aorta aside from less than 50% stenosis of the origin of the solitary left renal shannon) CT scan - pelvis: report reviewed, image reviewed and other (CT chest abdomen pelvis with contrast aortic dissection protocol: Impression: No vascular abnormality seen that would explain patient's chest or abdominal pain. Normal CT angiography of the thoracic and abdominal aorta aside from less than 50% stenosis of the origin of the solitary left renal shannon) Abdominal ultrasound report/results: report reviewed, image reviewed and other (Diagnostic Imaging Report Patient: Frank Higgins [facility]#: [id number]: [id number]:[id number]: EDService Date: 10/04/21Attending Dr: Ordering Physician: Kelly Collins D.O. Date of Service: 10/04/21 Procedure(s): US gallbladder Accession Number(s): [id number] cc: Provider,Not ) Assessment and Plan Assessment and plan (1) Acute cholecystitis due to biliary calculus: Status: Acute (2) Cirrhosis of liver: Status: Acute Plan The patient is a 45-year-old male with a history of cirrhosis due to alcohol abuse, however with most recently normal liver function and labs as of May. He has no evidence of ascites or encephalopathy or portal hypertension. He presents with elevated bilirubin in what appears to be an obstructive pattern as well as common bile duct dilatation ultrasound. He has gallstones and gallbladder wall thickening. Because of elevated LFTs is likely choledocholithiasis and possible cholecystitis. I explained that the treatment for this is laparoscopic cholecystectomy. We discussed the procedure as well as risks and benefits of surgery which include bleeding, infection, bile leak, conversion to open or injury to other structures, specifically the common bile duct. We also discussed recovery. I did discuss that in patients with cirrhosis there is somewhat higher risk of bleeding and if he has had prior surgery, slightly increased risk of open procedure. Because of the patient's elevated liver enzymes/dilated common bile duct, I explained that there is concern for choledocholithiasis. We discussed an intraoperative cholangiogram followed by attempts to remove the stone by either flushing or laparoscopic common bile duct exploration. They understand that if unsuccessful, an ERCP may be necessary. I did speak to the patient's chemical analytical sampler who agreed with this plan. The patient has no evidence of port hypertension or varices and is Child class a with a meld of 6 at baseline. We will therefore plan on cholecystectomy with intraoperative cholangiogram. The patient is agreeable with this plan.
[2021-10-05] MEDS: buPROPion HCL SR 150 MG TAB PO ×2 (09:25→20:10)
[2021-10-05] MEDS: GABAPENTIN 300 MG CAPSULE PO ×2 (09:25→20:12)
[2021-10-05] MEDS: CEFAZOLIN 2 GM INJ IVP (12:18)
[2021-10-05] MEDS: BUPIVACAINE 0.25% 30 ML 20 ML INJECTION (14:40)
--- NOTE | 2021-10-05 15:07 | CRLHL7_ITS ---
For Patients: As a result of the Cures Act, medical imaging exams and procedure reports are released immediately into your electronic medical record. You may view this report before your referring provider. If you have questions, please contact your health care provider. Indication: Elevated bilirubin. Technique: Multisequence multiplanar MRI of the abdomen without IV contrast. Comparison: Ultrasound gallbladder and CTA chest/abdomen/pelvis dated 10/04/2021. Findings: Liver: No significant hepatic steatosis. Subcentimeter cyst in segment 4A. Bile ducts: No significant biliary duct dilation. There are tiny filling defects in the distal common bile duct measuring up to 0.3 cm, worrisome for choledocholithiasis. Gallbladder: Interval postsurgical changes of cholecystectomy. Moderate amount of inflammatory changes within the gallbladder fossa is compatible with recent surgery. Small volume ascites is present. Pancreas: Unremarkable. Spleen: Unremarkable. Splenules are noted. Adrenals: Unremarkable. Kidneys: Moderate dilation of the right renal pelvis. Retroperitoneum: No lymphadenopathy. Visualized Bowel and mesentery: Visualized bowel is nondilated. Vessels: Unremarkable for unenhanced study. Abdominal wall: Postsurgical changes are present in the ventral abdominal wall. Bones: No suspicious focal osseous lesion. Impression: 1. Small filling defects in the distal common bile duct measuring up to 0.3 cm, worrisome for choledocholithiasis. No significant biliary duct dilation. 2. Interval postsurgical changes of cholecystectomy. Expected moderate amount of inflammatory changes are present within the gallbladder fossa, with small volume ascites. 3. Moderate dilation of the right renal pelvis, not seen previously, most likely reflective of an extrarenal pelvis. Dictated by Avril Sarmiento MD @ 10/05/2021 6:27:45 PM (Electronically Signed)
--- NOTE | 2021-10-05 15:11 | W.ANESCHARGE ---
Anesthesia Charges Start Date/Time Anesthesia Start Date: 10/05/21 Anesthesia Start Time: 11:50 Stop Date/Time Anesthesia Stop Date: 10/05/21 Anesthesia Stop Time: 14:56 Summary Emergency: No
--- NOTE | 2021-10-05 15:14 | PM.GSPRC ---
Operative Note Date of procedure: 10/05/21 Type of Procedure: Laparoscopic cholecystectomy Attempted intraoperative cholangiogram Lysis of adhesions. Procedure Description: After discussing the risks and benefits of the procedure, the patient signed informed consent.? The operative site was marked and the patient was brought to the operating room and placed on the operating table in supine position.? Care was taken to pad the patient's pressure points.?? The patient was then intubated by anesthesia.?? The operative site was then prepped and draped in the usual sterile fashion.? A time-out was then performed. Entrance to the abdomen was gained via a 5 mm Visiport in the left upper quadrant. The abdomen was insufflated and briefly surveyed for signs of injury. There was none. The omentum was stuck to his prior abdominal mesh repair obscuring the view of the abdomen. I was able to find a window in the right upper quadrant along the costal margin and there a 2nd 5 mm port was placed under direct vision. Once this was done, using LigaSure I took down the omentum in the right side of the abdomen to facilitate port placement for the surgery. I also took the omentum down in the epigastric area so that the left upper quadrant working port was able to reach the right upper quadrant without injuring other structures. The colon and small bowel were well away from the area of dissection. Once this was done I visualized the patient's anterior abdominal mesh. I then placed a 5 mm port just lateral to the mesh and umbilicus. Finally an additional 5 mm port was placed in the right lateral abdomen. The patient was then placed in reverse Trendelenburg position with the right side up. The gallbladder fundus was grasped and retracted cephalad. The gallbladder was noted to be edematous. The infundibulum was grasped. A combination of hook cautery and blunt dissection was used to carefully dissect out the cystic duct and artery until they could clearly be seen entering the gallbladder without any intervening structures. The tissue was quite friable and there was a modest amount of oozing from the inflamed tissue. Small bleeding vessels along the peritoneal edge of the gallbladder were clipped. The gallbladder was dissected off the cystic plate to achieve the critical view. Once this was achieved the cystic artery wasclipped with 2 clips proximally and 1 clip distally and transected with the scissors. A ductotomy was then created in the cystic duct. The cystic duct was noted to be somewhat dilated. Small stones were impacted in the cystic duct and very gently I milked them backward and out of the ductotomy. There was some bile which flowed backward through the distal cystic duct. Once I ensured as much sludge and small stones as possible were removed from the cystic duct, I advanced a cholangiocatheter into the abdomen. I then advanced the cholangiocatheter into the cystic duct. However I was unable to get this to thread far enough to create a seal. Again I did to gently milk any stones backward from the cystic duct. There were no further stones noted. I completed the transection of the cystic duct and then using 1 Vicryl and 1 PDS Endoloop, I ligated the cystic duct stump. I then removed the gallbladder from the liver bed. A small amount of bleeding was controlled with cautery. The gallbladder and some small gallstones that had spilled were removed from the abdomen using an Endo-Catch bag after up sizing the lateral umbilical port to a 10 port. The abdomen was irrigated and any small stony debris was removed.The gallbladder bed was surveyed for hemostasis which appeared adequate however because of the patient's history of cirrhosis, piece of Surgicel was placed in the gallbladder fossa. The umbilical port fascia was closed with 0 Vicryl using a Dao-Mya device The remaining ports were then removed and the abdomen desufflated. The skin was closed with absorbable subcuticular suture. Sterile dressings were then applied. ? The patient was then woken and transported to the recovery area in stable condition. Instrument sponge and needle counts were correct at the end of the case. ? The patient tolerated the procedure well. Findings: Multiple intra-abdominal adhesions from prior surgeries. Acute cholecystitis with numerous gallstones. Unable to perform cholangiogram. Anesthesia: GETA Surgeon: Anastasiia Francis MD Estimated blood loss (mL): 100 Condition: stable Disposition: PACU
[2021-10-05] MEDS: HYDROmorphone 0.5 mg/0.5 ml inj IVP ×4 (15:15→23:09)
[2021-10-05] MEDS: fentaNYL 100 MCG/2 ML inj 50 MCG IVP ×2 (15:19→15:45)
--- NOTE | 2021-10-05 15:25 | PC.NURSE ---
IRRIGATION WITH PULSE GARBAGE COLLECTOR DRIVER/NACL DURING PROCEDURE
--- NOTE | 2021-10-05 16:36 | P.IMPN_ITS ---
Progress Note: A&P Assessment and plan (1) Choledocholithiasis: Status: Acute Assessment and Plan: Plan is for laparoscopic cholecystectomy today, may need transfer and or discharge and outpatient ERCP. (2) Transaminitis: Status: Acute Assessment and Plan: Trend and follow. (3) History of alcoholism: Status: Acute Assessment and Plan: Cessation, sober for several years (4) History of cirrhosis: Status: Acute Assessment and Plan: Nearly resolved Subjective Date Seen: 10/05/21 Interval history: Daily Progress Note - Hospital Medicine Day #: 2 Postop day 1 lap choly, inter operative cholangiogram CC: Pain-free this morning. Hungry, thirsty. Had a lot of questions regarding treatment gallstones plan going forward. OVERNIGHT UPDATES FROM STAFF & MED, LAB, IMAGING UPDATES Pain resolved in the ED. He has been receiving IV antibiotics and fluids. I was bedside with the surgeon as we discussed the etiology of cholelithiasis, progression of choledocholithiasis in the risk/plan for surgery and and or MRCP/ERCP. Ultimately [facility] was contacted and suggested to Dr. Benton that lap choly with interoperative cholangiogram was appropriate. Please see the operation report for further detail. Review of Systems: See subjective Cardiac: No new chest pain/pressure/palpitations. Respiratory: no new dyspnea. GI: Minimal bloating and epigastric discomfort. Some radiation Objective: Vitals: see above Lungs: Clear. Cardiac: S1S2. Abdomen: Benign. No obvious ascites or mass. Disposition/Potential discharge - Likely to return to previous living situation. Total time is 35 minutes with greater than 50% spent in counseling and coordination of care. Exam Const: Vital Signs, click to edit/add: Vital Signs - 24 hr 10/04/21 16:40 10/04/21 16:50 10/04/21 18:00 Temperature Pulse Rate Pulse Rate [Left P ulse Oximeter] Pulse Rate [Pulse Oximeter] 74 76 87 Respiratory Rate 14 Blood Pressure Blood Pressure [Le ft Arm] Blood Pressure [Ri ght Upper Arm] 139/96 H 146/97 H 145/96 H Pulse Oximetry 98 97 97 10/04/21 18:30 10/04/21 19:00 10/04/21 21:30 Temperature Pulse Rate Pulse Rate [Left P ulse Oximeter] Pulse Rate [Pulse Oximeter] 72 75 86 Respiratory Rate 24 16 Blood Pressure Blood Pressure [Le ft Arm] Blood Pressure [Ri ght Upper Arm] 147/98 H 126/82 148/105 H Pulse Oximetry 99 99 98 10/04/21 22:13 10/04/21 22:32 10/05/21 02:41 Temperature 97.7 F 97.8 F Pulse Rate Pulse Rate [Left P ulse Oximeter] 73 69 Pulse Rate [Pulse Oximeter] Respiratory Rate 18 18 18 Blood Pressure Blood Pressure [Le ft Arm] 142/102 H 114/84 Blood Pressure [Ri ght Upper Arm] Pulse Oximetry 97 97 97 10/05/21 07:00 10/05/21 11:00 10/05/21 14:52 Temperature 99.1 F 98.7 F 97.1 F L Pulse Rate 95 Pulse Rate [Left P ulse Oximeter] 85 73 Pulse Rate [Pulse Oximeter] Respiratory Rate 28 H 28 H 16 Blood Pressure Blood Pressure [Le ft Arm] 128/93 H 124/100 H Blood Pressure [Ri ght Upper Arm] Pulse Oximetry 98 98 99 10/05/21 14:59 10/05/21 15:05 10/05/21 15:10 Temperature Pulse Rate 94 93 90 Pulse Rate [Left P ulse Oximeter] Pulse Rate [Pulse Oximeter] Respiratory Rate 20 20 16 Blood Pressure 168/107 H 167/111 H 159/107 H Blood Pressure [Le ft Arm] Blood Pressure [Ri ght Upper Arm] Pulse Oximetry 99 98 99 10/05/21 15:15 10/05/21 15:20 10/05/21 15:25 Temperature Pulse Rate 87 93 87 Pulse Rate [Left P ulse Oximeter] Pulse Rate [Pulse Oximeter] Respiratory Rate 16 18 16 Blood Pressure 149/104 H 161/113 H 163/107 H Blood Pressure [Le ft Arm] Blood Pressure [Ri ght Upper Arm] Pulse Oximetry 98 100 100 10/05/21 15:30 10/05/21 15:35 10/05/21 15:40 Temperature Pulse Rate 85 93 91 Pulse Rate [Left P ulse Oximeter] Pulse Rate [Pulse Oximeter] Respiratory Rate 16 16 18 Blood Pressure 155/105 H 144/102 H 154/109 H Blood Pressure [Le ft Arm] Blood Pressure [Ri ght Upper Arm] Pulse Oximetry 100 100 99 10/05/21 15:45 10/05/21 15:50 Temperature 98.2 F Pulse Rate 86 86 Pulse Rate [Left P ulse Oximeter] Pulse Rate [Pulse Oximeter] Respiratory Rate 16 18 Blood Pressure 155/108 H 146/99 H Blood Pressure [Le ft Arm] Blood Pressure [Ri ght Upper Arm] Pulse Oximetry 100 100 Labs Labs: Laboratory Results - last 24 hr 10/04/21 10/04/21 10/04/21 16:10 16:10 16:10 WBC RBC Hgb Hct MCV MCH MCHC RDW Coeff of Byron Plt Count Neut % (Auto) Lymph % (Auto) [place] % (Auto) Eos % (Auto) Baso % (Auto) Neut # (Auto) Lymph # (Auto) [place] # (Auto) Eos # (Auto) Baso # (Auto) Abs Immat Gran (auto) INR 1.12 H Sodium 138 Potassium 3.7 Chloride 105 Carbon Dioxide 25 BUN 7 Creatinine 0.8 Estimated Creat Clear 116.61 Estimated GFR 111 Glucose 113 Calcium 9.0 Total Bilirubin 3.9 H Direct Bilirubin GGT 407 H AST 328 H ALT 347 H Alkaline Phosphatase 137 Troponin I < 0.01 L Total Protein 7.3 Albumin 4.4 Lipase 104 SARS-CoV-2 (PCR) Blood Type Antibody Screen 10/04/21 10/04/21 10/05/21 19:30 19:30 06:14 WBC 3.75 L RBC 4.75 Hgb 14.4 Hct 42.0 MCV 88 MCH 30 MCHC 34 RDW Coeff of Byron 11.7 Plt Count 158 Neut % (Auto) 61.6 Lymph % (Auto) 22.9 [place] % (Auto) 9.6 Eos % (Auto) 5.3 Baso % (Auto) 0.3 Neut # (Auto) 2.30 Lymph # (Auto) 0.90 [place] # (Auto) 0.40 Eos # (Auto) 0.20 Baso # (Auto) 0.00 Abs Immat Gran (auto) 0.01 INR Sodium Potassium Chloride Carbon Dioxide BUN Creatinine Estimated Creat Clear Estimated GFR Glucose Calcium Total Bilirubin Direct Bilirubin 3.0 H GGT AST ALT Alkaline Phosphatase Troponin I Total Protein Albumin Lipase SARS-CoV-2 (PCR) Negative SARS-CoV-2 Blood Type Antibody Screen 10/05/21 10/05/21 06:14 06:14 WBC RBC Hgb Hct MCV MCH MCHC RDW Coeff of [place] Plt Count Neut % (Auto) Lymph % (Auto) [place] % (Auto) Eos % (Auto) Baso % (Auto) Neut # (Auto) Lymph # (Auto) [place] # (Auto) Eos # (Auto) Baso # (Auto) Abs Immat Gran (auto) INR Sodium 139 Potassium 3.9 Chloride 107 Carbon Dioxide 26 BUN 5 Creatinine 0.8 Estimated Creat Clear 116.61 Estimated GFR 111 Glucose 101 Calcium 8.7 Total Bilirubin 5.9 H Direct Bilirubin 3.5 H GGT 421 H AST 257 H ALT 381 H Alkaline Phosphatase 159 H Troponin I Total Protein 7.2 Albumin 4.2 Lipase 86 SARS-CoV-2 (PCR) Blood Type O Positive Antibody Screen NEGATIVE
--- NOTE | 2021-10-05 18:40 | PC.NURSE ---
shift [id number] pt taken to surgery at 1200 for gallbladder removal, preop teaching done with family at bedside. Arrived back to unit at 1600, pain rated 9/10, managed with PRN meds, see eMAR. Four laparoscopic incisions closed, small amount of bloody drainage noted. Pt upset about possibly needing to stay the night at the hospital, improved with staff interaction. Post-op teaching given, tolerating ice chips at this time, resting with family at bedside.
[2021-10-05] MEDS: OXYCODONE 5 MG TABLET PO (20:12)
--- NOTE | 2021-10-05 21:45 | P.EN_ITS ---
Chart Event Note Time Seen by Provider: 21:46 Date Seen: 10/05/21 Chart Event Note: 45-year-old male admitted last night with acute cholecystitis. Underwent laparoscopic cholecystectomy today. Unable to perform cholangiograms. Concern about common bile duct stone led to MRCP today which did show common bile duct stone. Patient has had increase in his bilirubin from 3.9 yesterday to 5.9 today. He currently feels well. Not having pain or fever. He is anxious to go home. Recommendation at this point is for patient to undergo ERCP. I have been calling to hospitals in the area to make arrangements for this. [facility], [facility], [facility], [facility] have all reported that they have no availability do ERCP this weekend or to take the patient as a transfer. [facility] in [place] did report that if there was signs of ascending cholangitis that we should call them back and they may be able to accommodate him on an emergency basis. They also noted that if his bilirubin decreases and he continues to feel well and not have fevers that he could be discharged for outpatient ERCP.
[2021-10-06] MEDS: HYDROmorphone 0.5 mg/0.5 ml inj IVP (02:40)
[2021-10-06] MEDS: PIPERACILLIN/TAZOBACTAM 3.375 GM in 0.9 % SODIUM CHLORIDE Mini-bag 100 ML IVPB ×2 (02:47→08:31)
[2021-10-06 03:00] VITALS: BP 136/95; PULSE 96; RESP 18; TEMP 36.9; O2SAT 96
--- NOTE | 2021-10-06 06:20 | PC.NURSE ---
Alert and orientedx4. Vitals stable. Pain management have been the main issue overnight. Managed pain with Oxycodone and Diaudid. Pain well managed. Pain only with activities at night. Pain 1-2 while resting. Patient really wants to go home. Dr. Pena spoke to the patient last night. Have been able to void good; amounts documented. No further concerns noted
[2021-10-06] MEDS: OXYCODONE 5 MG TABLET PO ×2 (06:37→11:03)
[2021-10-06 07:00] VITALS: BP 142/91; PULSE 82; PULSE 98; RESP 20; TEMP 36.9; O2SAT 98
[2021-10-06 07:27] LABS: HCO3 VBG 30 mmol/L (21-28); PCO2 VBG 52 mmHG (40-50); PO2 VBG 37.7 mmHG (25-47); pH VBG 7.363 (7.32-7.43)
[2021-10-06 07:34] LABS: Basophils Absolute Auto 0.01 K/uL (0.00-0.30); Basophils Percent Auto 0.1 % (0.0-3.0); Eosinophils Absolute Auto 0.02 K/uL (0.00-0.50); Eosinophils Percent Auto 0.3 % (0.0-7.0); Hematocrit 41.8 % (37.0-53.0); Hemoglobin* 14.4 gm/dL (13.5-17.5); Immature Granulocytes Abs Auto 0.01 K/uL (0.00-0.30); Lymphocytes Percent Auto 13.2 % (20-44); Mean Corpuscular HGB Conc 34 gm/dL (32-36); Mean Corpuscular Hemoglobin 31 pg (26-34); Mean Corpuscular Volume 89 fL (80-100); Monocytes Percent Auto 7.3 % (0.0-11.0); Platelet Count* 166 K/uL (140-440); RDW Coefficient of Variation % 11.5 % (11.5-15.5); Red Blood Count 4.69 m/uL (4.30-5.90); White Blood Count* 7.13 K/uL (4.50-11.00)
[2021-10-06 07:38] LABS: Slide Review Reflex No
[2021-10-06 07:54] LABS: INR 1.17 (0.91-1.10); Prothrombin Time 15.3 Seconds
[2021-10-06 07:56] LABS: Albumin* 4.3 g/dL (3.3-5.0); Chloride* 102 mmol/L (96-114); Sodium* 137 mmol/L (135-149)
[2021-10-06 07:57] LABS: Potassium* 4.2 mmol/L (3.6-5.1)
[2021-10-06 07:59] LABS: Bilirubin Total* 3.3 mg/dL (0.1-1.5); Creatinine* 0.8 mg/dL (0.5-1.5); Est. Creatinine Clearance* 116.61; Estimated Glomerular Filt Rate 111 ml/min
[2021-10-06 08:00] LABS: Alanine Aminotransferase* 288 U/L (4-50); Alkaline Phosphatase* 150 U/L (40-150); Aspartate Amino Transferase* 153 U/L (12-35); Blood Urea Nitrogen* 9 mg/dL (5-24); Calcium* 8.9 mg/dL (8.4-10.6); Carbon Dioxide* 29 mmol/L (20-32); Glucose* 100 mg/dL (60-115); Lipase* 57 U/L (23-300); Magnesium* 1.9 mg/dL (1.5-2.6); Total Protein* 7.4 g/dL (6.0-8.3)
[2021-10-06 08:03] LABS: C Reactive Protein* 1.2 mg/dL (0.5-1.0)
[2021-10-06 08:22] LABS: Bilirubin Direct* 1.3 mg/dL (0.0-0.5)
[2021-10-06] MEDS: LACTATED RINGERS 1000 ML 1,000 ML 125 ML IV (08:28)
[2021-10-06] MEDS: GABAPENTIN 300 MG CAPSULE PO (08:29)
[2021-10-06] MEDS: buPROPion HCL SR 150 MG TAB PO (08:31)
[2021-10-06 11:00] VITALS: BP 126/91; PULSE 77; RESP 20; TEMP 37.1; O2SAT 99
--- NOTE | 2021-10-06 14:34 | PC.NURSE ---
Discharge Note: Pt rates pain 4-6/10, Oxycodone PRN and ice working well for pain management per pt. VS WNL and LS COA. 4 lap site intact with small amount of bloody drainage. Advanced to soft diet and pt denies n/v. Walking independently. Excellent urine output. Pt was discharged to home via wheelchair in the care of his mom at 1438. Pt and his mother verbalized understanding of discharge instructions and follow up appointments.
--- NOTE | 2021-10-07 16:52 | PM.DS1 ---
DS: Providers Provider Time Seen by Provider: 11:00 Date Seen: 10/06/21 Date of admission: 10/04/21 21:43 Primary care physician: Not a Local Provider Admitting Clinician: Charles Pena MD Attending Physician on discharge: Sandeep Burton MD Date of Discharge: 10/06/21 DS: Diagnosis Discharge Diagnosis (1) Acute cholecystitis due to biliary calculus: Status: Acute (2) Choledocholithiasis: Status: Acute (3) Acquired hyperbilirubinemia: Status: Acute (4) Transaminitis: Status: Acute (5) History of alcoholism: Status: Acute (6) History of cirrhosis: Status: Acute DS: Summary Hospital Course Hospital Course: Frank presented to the emergency department with complaints of chest/abdominal pain that began after eating. The patient reports similar symptoms 1 day prior to presentation. In the emergency department, patient reports that he has had waxing waning of discomfort. He has had CT evaluation of chest abdomen pelvis to rule out aortic emergency. He has had normal EKG. His laboratory studies have revealed transaminitis and his ultrasound revealed gallstones with potential wall thickening. Dr. Francis, general surgery, was consulted for consideration of cholecystectomy. She recommends antibiotics, re-evaluation with additional laboratory studies in the a.m., and potential surgical intervention pending further evaluation. She has requested the hospitalist consult for medical management. Plan for patient to be admitted for further evaluation and treatment of his acute concern and complaints. Frank Higgins is a 45 year old male admitted through the emergency department with a 1 day history of? severe epigastric pain.? He had onset of the pain yesterday.? He was very severe.? He was unable to continue his work because of the pain.? He is unable to eat because of the pain.? Last night he was able to sleep a little and this morning his pain was better.? Today he ate lunch and this afternoon? the pain got much worse.? As result of this he came to the emergency room. he wear of having a fever.? Does not have shortness of breath.? He has had nausea without vomiting.? Bowel function has been normal.? No previous symptoms like this.? He does note however that in on is of mild heartburn. He is known to have gallstones dating back? years. Patient has a history of severe alcoholic induced liver disease recurrent hospitalizations up until May of 2018 with ascites, jaundice, hepatitis, macrocytic anemia, hyponatremia. he also had hypertension and diabetes type 2. Since May of 2018 he has stopped drinking alcohol and the problems have resolved.? 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 Patient underwent a laparoscopic cholecystectomy in hospital per Dr. Anastasiia Francis. Patient also has choledocholithiasis. MRCP confirmed postoperatively. Dr. Francis made arrangements with [facility] for patient to undergo outpatient ERCP in the near future. The staff at [facility] will be arranging the date and time with the patient soon. Backup plan for patient to return to hospital should his condition worsen in the meantime is established. Patient and his mother expressed understanding of the plan. Status at Discharge Functional status at discharge: independent ambulation Overall status at discharge: patient is progressing back to baseline Time Spent with Patient Time attestation: Total time spent providing and/or coordinating discharge services: Time spent: Greater than 30 minutes Exam Narrative: Exam Narrative: Appears comfortable. Some discomfort with movement. Overall he states he is much improved from prior to surgery. Lungs clear to auscultation. Heart tones with regular rhythm. Abdomen with active bowel sounds soft nontender. Extremities without edema. Independent transfer, station, gait. Skin warm, dry, intact. Const: Documenting provider has reviewed patient's vital signs: yes DS: Data Imaging US - abdomen: Radiologist's impression: Solitary 3.3 centimeter gallstone gallbladder wall thickening up to 5 millimeters. Common bile duct is the upper limits of normal at 7 millimeters. MRI - abdomen: Radiologist's impression: 1. Small filling defects in the distal common bile duct measuring up to 0.3 cm, worrisome for choledocholithiasis. No significant biliary duct dilation. 2. Interval postsurgical changes of cholecystectomy. Expected moderate amount of inflammatory changes are present within the gallbladder fossa, with small volume ascites. 3. Moderate dilation of the right renal pelvis, not seen previously, most likely reflective of an extrarenal pelvis. Discharge Plan Discharge Disposition: Home, Self-Care Date of Admission: 10/04/21 21:43 Attending Provider on Discharge: Sandeep Burton Consulting Providers: Anastasiia Francis Primary Care Provider: Provider,Not a Local Condition: Improved Anticipated Discharge Date/Time: 10/06/21 15:00 Discharge Medications: New oxycodone 5 mg Tablet 5 - 10 mg PO Q6H PRN (Reason: Pain) Qty: 20 0RF bupropion HCl 150 mg Tablet Sustained-Release 12 Hr 150 mg PO BID 30 Days Qty: 60 0RF gabapentin 300 mg Capsule 300 mg PO BID 30 Days Qty: 60 0RF ciprofloxacin HCl 500 mg tablet 500 mg PO BID Qty: 10 0RF metronidazole 500 mg tablet 500 mg PO TID Qty: 15 0RF Continued hydroxyzine HCl 25 mg tablet 25 mg PO TID [id number] Label Comments: Take 1 tablet (25 mg) by mouth 3 times daily as needed for anxiety Discontinued gabapentin 300 mg capsule 600 - 900 mg PO BID 0RF Label Comments: Take 2 capsules by mouth at dinner and 3 at bedtime bupropion HCl 150 mg tablet sustained-release 12 hr 150 mg PO BID 0RF Discharge Orders: Discharge Order (Routine); Ordered 10/06/21 Ordered By: Sandeep Burton Patient Education: Ciprofloxacin (By mouth), Bupropion (By mouth), Metronidazole (By mouth), Gabapentin (By mouth), Oxycodone, Rapid Release (By mouth), General Anesthesia (DC), Laparoscopic Cholecystectomy (DC), Post-Operative Instructions: Laparoscopic Cholecystectomy Activity Level: No strenuous activity Activity Detail: You will need to undergo a procedure called an ERCP to remove the gallstones blocking your bile duct. Someone from [facility] will call you to set this up. Please bring the copy of the MRI report and History and Physical that you were given on your discharge to that appointment. In case they can add you on for this procedure on Friday, do not eat or drink anything except sips of water with medication after midnight on Friday. If you develop fever, chills or worsening pain, you must present to the emergency department. No lifting more than 20 lb for 2 weeks. Wound care: Your sutures are under the skin and will dissolve over time. Leave steri strips (white bandages) over incisions until they fall off (or remove after 7 days). OK to shower tomorrow but avoid bathing, soaking or swimming for 2 weeks. Pat the incisions dry. No need to wash or scrub the area. Apply ice to the area as needed for swelling. It is also OK to use a heating pad if this provides more comfort to you. Pain control: You were prescribed a pain medication. As your pain improves, you can try taking Ibuprofen or Naproxen (per directions on packaging). This medication helps with inflammation and swelling. Take an [id number] stool softener while you are taking prescribed pain medications to help alleviate constipation. I recommend Senna and/or Colace. Take as directed on package. If you have not had a bowel movement in 3 days, try taking Miralax as directed on the package. All of these are available over the counter. Follow-up Follow up with Dr. Francis in 2-3 weeks Please call if you are experiencing severe pain, nausea, vomiting, difficulty urinating, fever or have not had bowel movement in 4 days after surgery. Discharge Diet: Low Fat/Low Cholesterol and Other Diet Detail: eat a low fat/bland diet until after your ERCP procedure Follow Up Appointments: Anastasiia Francis MD [Staff Physician] - 10/22/21 1:45 pm (At [facility]) Provider,Not a Local [Primary Care Provider] - Forms: [facility] Info Instructions
== END 2021-10-06 14:19 | disposition home or self-care (01) ==
LOC: ED 19:54 → MEDSURG 10-05 07:11 → ED 10-17 08:01 → SS 10-17 08:01
PROVIDERS: Family Medicine; Surgery; Emergency Provider Family Medicine; Visit Provider Family Medicine
PROC: 0FT44ZZ Resection of Gallbladder, Percutaneous Endoscopic Approach (ICD-10-PCS; CPT 47563; principal; 2021-10-05 12:00)
DX: K80.47 Calculus of bile duct with acute and chronic cholecystitis with obstruction (principal); K70.30 Alcoholic cirrhosis of liver without ascites; K66.0 Peritoneal adhesions (postprocedural) (postinfection); K70.10 Alcoholic hepatitis without ascites; F10.21 Alcohol dependence, in remission; I10 Essential (primary) hypertension; E11.9 Type 2 diabetes mellitus without complications; D53.9 Nutritional anemia, unspecified; E87.1 Hypo-osmolality and hyponatremia
CPT/HCPCS: 47563; 00860; 36415; 71270; 74177; 74181; 76705; 80048; 80053; 80076; 82248; 82803; 82977; 83690; 83735; 84484; 85025; 85610; 86140; 86850; 86900; 86901; 87635; 88304; 93005; 99284; 99285; A9270; J0330; J0690; J1100; J1170; J2405; J2543; J2704; J3010; J3490; J7050; J7120; Q9967; S0106

== ENCOUNTER 2021-10-22 14:22 | Outpatient (CLI) | payer OTHER, SELFPAY ==
[2021-10-22 16:13] LABS: Albumin* 4.5 g/dL (3.3-5.0)
[2021-10-22 16:16] LABS: Alanine Aminotransferase* 38 U/L (4-50); Alkaline Phosphatase* 114 U/L (40-150); Aspartate Amino Transferase* 31 U/L (12-35); Bilirubin Direct* 0.4 mg/dL (0.0-0.5); Bilirubin Total* 0.8 mg/dL (0.1-1.5); Total Protein* 7.3 g/dL (6.0-8.3)
== END 2021-10-22 14:23 | disposition home or self-care (01) ==
LOC: NFLDREF 14:24
PROVIDERS: Visit Provider Surgery
DX: E80.6 Other disorders of bilirubin metabolism (principal); K80.50 Calculus of bile duct without cholangitis or cholecystitis without obstruction
CPT/HCPCS: 80076